=== PATIENT | male | born 2005 | race Caucasian/White ===

== ENCOUNTER 2023-11-06 18:43 | Emergency (ER) | payer OTHER, SELFPAY ==
--- NOTE | ~2023-11-06 | XR_ITS ---
EXAMINATION: XR HAND, LEFT CLINICAL INFORMATION: Finger laceration COMPARISON: None available. TECHNIQUE: PA, lateral, and oblique views of the left hand. XR/XR hand LT min 3V FINDINGS / IMPRESSION: The examination is limited secondary to flexed position of the fingers on the frontal and oblique radiographs. There is no fracture or dislocation. Grossly, there is no radiopaque foreign object identified within the soft tissues.
[2023-11-06 18:51] VITALS: BP 110/47; PULSE 64; RESP 18; TEMP 36.5; O2SAT 100; BMI 26.6
--- NOTE | 2023-11-06 18:59 | ED_ITS ---
HPI - Wound/Laceration General Chief Complaint: Wound/Laceration Stated Complaint: left hand laceration Time Seen by Provider: 11/07/23 00:10 Source: patient Mode of arrival: ambulatory Limitations: no limitations History of Present Illness HPI narrative: 19-year-old with history of low blood pressure presents to the ED for left index laceration caused by machete while fishing. He states he was trying to open up the kit and he cut his hand by accident with a machete use for fishing. Patient unaware of last tetanus shot. Patient denies any numbness/tingling of extremity. Patient states no other trauma Related Data Previous Rx's ?Medication ?Instructions ?Recorded cephalexin 500 mg capsule 500 mg PO QID 7 days #28 caps 11/07/23 Allergies Allergy/AdvReac Type Severity Reaction Status Date / Time No Known Allergies Allergy Verified 11/06/23 18:56 [No Known Allergies*] Review of Systems 2 Review of Systems: Left index finger laceration Yes all other systems are reviewed and are negative PMFSH Social History Social History Advance Directives: No Advance Directives Information Provided: No Physical Exam 2 Vital Signs: Vital Signs: Last Vital Signs Temp 98.0 F 11/07/23 02:05 Pulse 74 11/07/23 02:05 Resp 18 11/07/23 02:05 BP 134/78 11/07/23 02:05 Pulse Ox 97 11/07/23 02:05 O2 Del Method Room Air 11/07/23 02:05 BMI result Body Mass Index 26.6 Const: General: cooperative, healthy appearing, comfortable, no acute distress, well developed, alert, awake and Physically active O rientation/consciousness: oriented to person, oriented to place, oriented to time and patient oriented x3 HEENT: Head: Yes normal to inspection, Yes No palpable skull fracture present, Yes normocephalic, Yes atraumatic and No abrasion Eyes: General: appearance normal, both eyes and all related structures Neck: Neck: Yes normal visual inspection, Yes full ROM, Yes no lymphadenopathy, Yes no meningeal signs, Yes trachea midline, Yes supple, No anterior neck swelling and No tender Chest: Chest palpation & inspection: normal inspection of the chest and normal palpation of entire chest wall Resp: Effort & Inspection: normal respiratory effort and able to speak in complete sentences Auscultation: clear to auscultation bilaterally Cardio: Jugular venous distension: no JVD Heart sounds: S1 normal heart sound present and S2 normal heart sound present GI: Inspection: Yes normal to inspection Palpation (GI): Soft to palpation, not firm, nontender, no guarding and not rigid : General: No CVA tenderness and Yes no CVA tenderness Back/Spine/Pelvis: Back: no CVA tenderness, No CVA tenderness and No back tenderness Skin: General skin exam: no rashes or lesions noted, elasticity normal and turgor normal Neuro: General: oriented to person, oriented to place, oriented to time, patient oriented x3, gait normal, tone normal, moves all extremities, Normal light touch and pain sensation, no meningeal signs, no focal motor deficits, CN's II-XI intact bilaterally and normal sensation to monofilament Extrem: General: Yes normal to inspection, Yes full ROM and Yes capillary refill normal Hand/finger images: 1. Positive for laceration. Active bleeding. Patient has complete range of motion of finger. Capillary refill intact. Refill signs of tenderness/nerve injury. Rest of extremity normal. Motor/neuro/vascular exam intact 2. Positive skin tear/abrasion. No need for laceration repair Psych: Appearance: grossly normal, well kempt and not disheveled Course Course Course Narrative: This is an RME: Additional HPI, ROS, PE not included below will be deferred to primary provider. RME assessment and note performed by: Sabrina Ann PA-C This is a 18-year-old male who presents emergency department with complaints of left 2nd digit laceration which occurred just prior to arrival. Patient states that he accidentally lacerated his left 2nd digit with a machete while cutting a piece of rope today. Left 2nd digit with full-thickness laceration noted, distal sensation circulation intact. Patient reports that his tetanus is up-to-date however does not appear to be certain about this, please ask again. Plan: X-ray Medications Administered Discontinued Medications Generic Name Dose Route Start Last Admin Trade Name Freq PRN Reason Stop Dose Admin Diphtheria/Tetanus/Acell Pertussis 0.5 ml 11/07/23 01:35 11/07/23 01:53 Diphth,Pertus(Acell),Tet Adult 0.5 Ml Syringe IM 11/07/23 01:36 0.5 ml .ONCE ONE Administration Lidocaine HCl 5 ml 11/07/23 00:37 11/07/23 01:13 Lidocaine Hcl 1 % Mpf 5 Ml Vial INFILTRATI 11/07/23 00:38 5 ml ONCE ONE Administration Lidocaine HCl 5 ml 11/07/23 00:37 11/07/23 01:14 Lidocaine Hcl 1 % Mpf 5 Ml Vial INFILTRATI 11/07/23 00:38 5 ml ONCE ONE Administration Medical Decision Making Medical Decision Making MDM Narrative: When year old male presents to ED for left index finger laceration caused by a machete used while fishing. Patient has unknown last tetanus shot. X-ray negative for fracture. Patient given Tdap. 7 mL lidocaine 1% used for local anesthesia. Size 3 nylon sutures used. Three sutures placed. Motor neurovascular exam intact after procedure. Discharged with antibiotics Differential Diagnosis Differential Diagnoses: The differential diagnosis associated with the presentation includes (Laceration, fracture) Independent Interpretation I performed an independent interpretation of an: Plain X-Ray Radiology Impression Discussion of test interpretation with radiology: I have reviewed the radiologist's reading. External Record Review External record reviewed: Other (Prior visits ) Discharge Plan Discharge Clinical Impression: Laceration, Abrasion Patient Disposition: Home, Self-Care Instructions: Laceration (ED), Abrasion (ED) Additional Instructions: Sutures should be removed in 10 days. REturn To the ED immediately for any redness, pain, swelling, pus discharge, foul odor, bluish discoloration, inability to move finger, hotness/coldness, or any other concerning symptoms. Recommend follow-up with primary care provider. Keep area dry the 1st 48 hours Prescriptions: New cephalexin 500 mg capsule 500 mg PO QID 7 Days Qty: 28 0RF Stand Alone Forms: Work/School Release Interventions: ED Discharge Assessment Last Done: 11/07/23 02:05 Discharge Date/Time: 11/07/23 02:06 Print Language: Luxem[place]ish
[2023-11-06 22:30] VITALS: BP 122/66; PULSE 75; RESP 18; TEMP 36.6; O2SAT 100
[2023-11-07] MEDS: Lidocaine HCl 1 % MPF 5 ML VIAL INFILTRATI ×2 (01:13→01:14)
--- NOTE | 2023-11-07 01:50 | PC.NURSE ---
pt tolerate wound cleaning and wrapping well
[2023-11-07] MEDS: Diphth,Pertus(ACell),Tet Adult 0.5 ML SYRINGE IM (01:53)
[2023-11-07 02:01] VITALS: BP 134/78; PULSE 74; RESP 18; TEMP 36.7; O2SAT 97
[2023-11-07 02:05] VITALS: BP 134/78; PULSE 74; RESP 18; TEMP 36.7; O2SAT 97
== END 2023-11-07 02:06 | disposition home or self-care (01) ==
PROVIDERS: Emergency Provider Internal Medicine
DX: S61.211A Laceration without foreign body of left index finger without damage to nail, initial encounter (principal); W26.0XXA Contact with knife, initial encounter; Y93.89 Activity, other specified; Y92.9 Unspecified place or not applicable; Y99.9 Unspecified external cause status; Z23 Encounter for immunization
CPT/HCPCS: 12001; 73130; 90471; 90715; 99283; 99284